=== PATIENT | male | born 1990 | race Caucasian/White ===

== ENCOUNTER 2018-11-11 15:19 | Emergency (ER) | payer MEDICAID ==
[~2018-11-11] VITALS: Ht 172.7 cm; Wt 106.1 kg
[2018-11-11 15:42] VITALS: BP 118/60; Ht 172.7 cm; Wt 106.1 kg
== END 2018-11-11 16:59 | disposition home or self-care (01) ==
LOC: ED 15:19
DX: S62.610A Displaced fracture of proximal phalanx of right index finger, initial encounter for closed fracture (principal); Z87.442 Personal history of urinary calculi; X58.XXXA Exposure to other specified factors, initial encounter; Y93.67 Activity, basketball; Y92.89 Other specified places as the place of occurrence of the external cause; Y99.8 Other external cause status
CPT/HCPCS: A4570

== ENCOUNTER 2018-11-17 14:38 | Emergency (ER) | payer MEDICAID ==
[~2018-11-17] VITALS: Ht 172.7 cm; Wt 105.2 kg
[2018-11-17 14:50] VITALS: Ht 172.7 cm; Wt 105.2 kg
[2018-11-17 15:49] VITALS: BP 128/75
== END 2018-11-17 15:49 | disposition home or self-care (01) ==
LOC: ED 14:38
DX: S62.610A Displaced fracture of proximal phalanx of right index finger, initial encounter for closed fracture (principal); X58.XXXA Exposure to other specified factors, initial encounter; Y93.67 Activity, basketball; Y92.310 Basketball court as the place of occurrence of the external cause; Y99.8 Other external cause status

== ENCOUNTER 2019-01-15 01:31 | Emergency (ER) | payer SELFPAY ==
[~2019-01-15] VITALS: Ht 167.6 cm; Wt 104.8 kg
[2019-01-15 01:34] VITALS: BP 107/87
[2019-01-15 02:20] LABS: microscopic required? NO
[2019-01-15 02:35] LABS: BASOPHIL % 0.3 % (0-2); PLATELET COUNT 227 x10^3mcL (130-400); RED CELL DISTRIBUTION WIDTH 12.5 % (11.5-14.5)
[2019-01-15 02:35] LABS: UA SPECIFIC GRAVITY >=1.030 (1.005-1.035); urine erythrocyte NEGATIVE (NEGATIVE)
[2019-01-15 02:39] LABS: CALCIUM 8.9 mg/dL (8.5-10.1); CARBON DIOXIDE 26.5 mmol/L (21-32); CHLORIDE SERUM 105 mmol/L (98-107); CREATININE SERUM 1.1 mg/dL (0.7-1.3); GFR1 > 60 mL/min; GLUCOSE SERUM 103 mg/dL (74-106); POTASSIUM SERUM 3.6 mmol/L (3.5-5.1); SODIUM SERUM 141 mmol/L (136-145)
[2019-01-15 02:44] LABS: ALBUMIN 3.7 g/dL (3.4-5.0); ALKALINE PHOSPHATASE 82 U/L (46-116); ALT/SGPT 93 U/L (16-63); AMYLASE 42 U/L (25-115); AST/SGOT 31 U/L (15-37); BILIRUBIN TOTAL 0.38 mg/dL (0.20-1.00); LIPASE 49 IU/L (73-393); TOTAL PROTEIN, SERUM 7.3 g/dL (6.4-8.2)
[2019-01-15 02:49] LABS: AMPHETAMINE QUAL UR NONE DETECTED (See below)
== END 2019-01-15 04:36 | disposition home or self-care (01) ==
LOC: ED 01:31
PROVIDERS: Specialist
DX: R10.32 Left lower quadrant pain (principal); R19.7 Diarrhea, unspecified; R11.0 Nausea; Z98.890 Other specified postprocedural states
CPT/HCPCS: J1885; J2405; J3010; J7030

== ENCOUNTER 2020-02-02 22:52 | Emergency (ER) | payer MEDICAID ==
[~2020-02-02] VITALS: Ht 167.6 cm; Wt 110.7 kg
[2020-02-02 22:57] VITALS: Ht 167.6 cm; Wt 110.7 kg
[2020-02-02 23:55] VITALS: BP 136/68
== END 2020-02-02 23:55 | disposition home or self-care (01) ==
LOC: ED 22:52
DX: L03.011 Cellulitis of right finger (principal); Z87.442 Personal history of urinary calculi
CPT/HCPCS: J2001